=== PATIENT | female | born 1980 | race Caucasian/White ===

== ENCOUNTER 2023-04-14 11:43 | Emergency (ER) | payer SELFPAY ==
[~2023-04-14] VITALS: Ht 177.8 cm; Wt 122.5 kg
[2023-04-14] MEDS ORDERED: DECADRON4 MG PO (14:24)
== END 2023-04-14 14:28 | disposition home or self-care (01) ==
LOC: ED 11:43
DX: U07.1 COVID-19 (principal); B97.4 Respiratory syncytial virus as the cause of diseases classified elsewhere; R63.0 Anorexia

== ENCOUNTER 2023-07-25 01:22 | Emergency (ER) | payer SELFPAY ==
[~2023-07-25] VITALS: Ht 180.3 cm; Wt 131.5 kg
[~2023-07-25 01:22] MED LIST: DECADRON4 MG PO
[2023-07-25 02:01] LABS: BASO # 0.1 10*3/uL (0.0-0.1); BASO % 0.4 % (0.0-1.0); EOS # 0.2 10*3/uL (0.0-0.4); EOS % 1.5 % (1.0-4.0); HEMATOCRIT 43.3 % (37.0-47.0); LYMPH # 2.9 10*3/uL (1.3-4.4); LYMPH % 21.8 % (27.0-41.0); MEAN CELL VOLUME 86.6 fl (81.0-99.0); MEAN CORPUSCULAR HGB 27.8 pg (27.0-31.0); MEAN CORPUSCULAR HGB CONC 32.1 g/dl (33.0-37.0); MEAN PLATELET VOLUME 8.8 fl (9.6-12.3); MONO % 7.2 % (3.0-9.0); NEUT # 9.1 10*3/uL (2.3-7.9); NEUT % 68.7 % (47.0-73.0); PLATELET COUNT AUTOMATED 351 10*3/uL (130-400); RED CELL DISTRI WIDTH 14.5 % (0-14.5); WHITE BLOOD COUNT 13.3 10*3/uL (4.8-10.8)
[2023-07-25 02:28] LABS: ALKALINE PHOSPHATASE 106 U/L (46-116); BUN 10 mg/dl (9-23); CHLORIDE 105 mmol/L (98-107); POTASSIUM 3.7 mmol/L (3.4-5.1); SGPT/ALT 14 U/L (5-49); TOTAL PROTEIN 7.2 gm/dL (6.0-8.0)
[2023-07-25] MEDS ORDERED: cloNIDine Hydrochloride 0.1 MG TAB PO ONE (02:40)
[2023-07-25 02:42] LABS: BILIRUBIN Negative (Negative); BLOOD Negative (Negative); CLARITY Turbid (Clear); COLOR Yellow (Yellow); GLUCOSE Negative (Negative); KETONE Negative (Negative); LEUKO ESTERASE 1+ (Negative); NITRITE Negative (Negative); PH 6.5 (4.5-8.0); UROBILINOGEN 0.2 E.U./dl (0.0-1.0)
[2023-07-25 02:49] LABS: URINE AMPHETAMINES Positive (1000ng/ml); URINE BARBITURATES Negative (200ng/ml); URINE BENZODIAZEPINES Negative (200ng/ml); URINE CANNABINOIDS (THC) Negative (50ng/ml); URINE COCAINE Negative (300ng/ml); URINE METHADONE Negative (300ng/ml); URINE OPIATES Negative (300ng/ml); URINE PHENCYCLIDINE Negative (25ng/ml)
[2023-07-25 02:57] LABS: BACTERIA 4+; EPITHELIAL CELLS TNTC
[2023-07-25] MEDS ORDERED: CIPRO500 MG PO (04:55)
== END 2023-07-25 05:12 | disposition home or self-care (01) ==
LOC: ED 01:22
PROVIDERS: Internal Medicine
DX: N39.0 Urinary tract infection, site not specified (principal); Z20.822 Contact with and (suspected) exposure to COVID-19; M25.561 Pain in right knee; I10 Essential (primary) hypertension; R42 Dizziness and giddiness; Z87.891 Personal history of nicotine dependence; Z79.899 Other long term (current) drug therapy

== ENCOUNTER 2024-12-07 11:56 | Emergency (ER) | payer SELFPAY ==
[~2024-12-07] VITALS: Ht 180.3 cm; Wt 122.5 kg
[~2024-12-07 11:56] MED LIST changes: +CIPRO500 MG PO
[2024-12-07] MEDS ORDERED: AMOXICILLIN875 MG PO (12:20)
[2024-12-07] MEDS ORDERED: AMOXICILLIN 875 MG TAB PO ONE (12:20)
== END 2024-12-07 12:42 | disposition home or self-care (01) ==
LOC: ED 11:56
DX: H66.92 Otitis media, unspecified, left ear (principal); Z79.899 Other long term (current) drug therapy